=== PATIENT | male | born 1970 | race Caucasian/White ===

== ENCOUNTER 2019-12-17 13:09 | Emergency (ER) | payer MEDICAID | END 2019-12-17 13:47 | disposition left against medical advice (07) | LOC: ER 13:09 | DX: R05 Cough (principal); Z53.21 Procedure and treatment not carried out due to patient leaving prior to being seen by health care provider ==

== ENCOUNTER 2019-12-23 20:36 | Emergency (ER) | payer MEDICAID ==
[~2019-12-23] VITALS: Ht 170.2 cm; Wt 81.8 kg
[2019-12-23 20:45] VITALS: BP 190/97
--- NOTE | 2019-12-23 20:54 | PHYS DOC ---
General Adult EDM: Chief Complaint: DENTAL PROBLEM HPI: HPI: Patient is a 49 year old male who presents with complaint of right lower dental pain as well as productive cough. Patient states that the pain is been present for about the last 3 days. He states that he has been seen by dentist for the same tooth in the past and states that symptoms had cleared up but have returned. He states the cough is been going on for about a week and states the cough is productive of green sputum. He also indicates he has some purulent nasal drainage. He denies any chest pain or shortness breath. He also denies any fever.[] Review of Systems: Review of Systems: Constitutional: Denies fever or chills. [] Respiratory: Positive cough without shortness of breath. [] Cardiovascular: Denies chest pain or edema. [] Neurologic: Denies headache, focal weakness or sensory changes. [] Heart Score: Risk Factors: Risk Factors: DM, Current or recent (<one month) smoker, HTN, HLP, family history of CAD, obesity. Risk Scores: Score 0 - 3: 2.5% MACE over next 6 weeks - Discharge Home Score 4 - 6: 20.3% MACE over next 6 weeks - Admit for Clinical Observation Score 7 - 10: 72.7% MACE over next 6 weeks - Early Invasive Strategies Physical Exam: PE: Constitutional: Well developed, well nourished, no acute distress, non-toxic appearance. [] HENT: Normocephalic, atraumatic, dentition is poor with widespread dental caries. There is tenderness to palpation over the posterior aspect of the right lower first molar. [] Cardiovascular: Regular rate and rhythm[] Lungs & Thorax: Bilateral breath sounds clear to auscultation [] EKG: EKG: [] Radiology/Procedures: Radiology/Procedures: [] Course & Med Decision Making: Course & Med Decision Making Pertinent Labs and Imaging studies reviewed. (See chart for details) [] Prasanna Disclaimer: Prasanna Disclaimer: This electronic medical record was generated, in whole or in part, using a voice recognition dictation system. Departure Departure Impression: Primary Impression: Acute bronchitis Qualified Codes: J20.9 - Acute bronchitis, unspecified Additional Impression: Pain due to dental caries Disposition: HOME, SELF-CARE Condition: STABLE Referrals: NO PCP (PCP) Patient Instructions: Acute Bronchitis, Dental Caries, Dental Pain Scripts Hydrocodone/Apap 5-325 (NORCO 5-325 TABLET) 1 Each Tablet 1-2 EACH PO PRN Q6HRS PRN for PAIN, #15 as needed for pain Prov: VERNON FERNANDEZ Jr. DO 12/23/19 Amoxicillin/Potassium Clav (AUGMENTIN 875-125 TABLET) 1 Each Tablet 1 TAB PO BID for 10 Days, #20 TAB 0 Refills Prov: VERNON FERNANDEZ Jr. DO 12/23/19 VERNON FERNANDEZ Jr. DO Dec 23, 2019 20:53
[2019-12-23] MEDS ORDERED: HYDR-3164 PO (21:00)
[2019-12-23] MEDS ORDERED: AMOX1TAB61 PO (21:00)
== END 2019-12-23 21:07 | disposition home or self-care (01) ==
LOC: ER 20:36
DX: J20.9 Acute bronchitis, unspecified (principal); K02.9 Dental caries, unspecified
CPT/HCPCS: 99283

== ENCOUNTER 2020-10-27 09:48 | Emergency (ER) | payer MEDICAID ==
[~2020-10-27] VITALS: Ht 172.7 cm; Wt 81.8 kg
[~2020-10-27 09:48] MED LIST: AMOX1TAB61 PO; HYDR-3164 PO
--- NOTE | 2020-10-27 11:15 | PHYS DOC ---
Past Medical History Past Medical History: No Pertinent History Past Surgical History: No Surgical History Smoking Status: Current Every Day Smoker Alcohol Use: Occasionally General Adult EDM: Chief Complaint: COUGH HPI: HPI: Patient is a 49 year old male current smoker presenting today complaining of a dry cough for 1 month. Patient denies any fever, shortness of breath, chest pain. He states is from [place] and has been in town for a month. He states he had a negative rapid Covid test a month ago before he took a train to [place]. He states several family members in the house is living in and also cocaine. Review of Systems: Review of Systems: Constitutional: Denies fever or chills. [] Eyes: Denies change in visual acuity. [] HENT: Denies nasal congestion or sore throat. [] Respiratory: Reports cough, denies shortness of breath. [] Cardiovascular: Denies chest pain or edema. [] GI: Denies abdominal pain, nausea, vomiting, bloody stools or diarrhea. [] : Denies dysuria. [] Musculoskeletal: Denies back pain or joint pain. [] Integument: Denies rash. [] Neurologic: Denies headache, focal weakness or sensory changes. [] Psychiatric: Denies depression or anxiety. [] Heart Score: Risk Factors: Risk Factors: DM, Current or recent (<one month) smoker, HTN, HLP, family history of CAD, obesity. Risk Scores: Score 0 - 3: 2.5% MACE over next 6 weeks - Discharge Home Score 4 - 6: 20.3% MACE over next 6 weeks - Admit for Clinical Observation Score 7 - 10: 72.7% MACE over next 6 weeks - Early Invasive Strategies Allergies: Allergies: Allergies Coded Allergies Type Severity Reaction Last Updated Verified No Known Drug Allergies 12/23/19 No Physical Exam: PE: Constitutional: Well developed, well nourished, no acute distress, non-toxic appearance. [] HENT: Normocephalic, atraumatic, bilateral external ears normal, oropharynx moist, no oral exudates, nose normal. [] Eyes: PERRLA, EOMI, conjunctiva normal, no discharge. [] Neck: Normal range of motion, no tenderness, supple, no stridor. [] Cardiovascular:Heart rate regular rhythm, no murmur [] Lungs & Thorax: Bilateral breath sounds clear to auscultation [] Abdomen: Bowel sounds normal, soft, no tenderness, no masses, no pulsatile masses. [] Skin: Warm, dry, no erythema, no rash. [] Back: No tenderness, no CVA tenderness. [] Extremities: No tenderness, no cyanosis, no clubbing, ROM intact, no edema. [] Neurologic: Alert and oriented X 3, normal motor function, normal sensory fu nction, no focal deficits noted. [] Psychologic: Affect normal, judgement normal, mood normal. [] Current Patient Data: Vital Signs: Vital Signs Date Time Temp Pulse Resp B/P (MAP) Pulse Ox O2 Delivery O2 Flow Rate FiO2 10/27/20 10:10 98.4 67 20 133/79 (97) 97 Room Air 98.4 EKG: EKG: [] Radiology/Procedures: Radiology/Procedures: []PROCEDURE: PORTABLE CHEST 1V XR CHEST 1V History: Reason: cough,PUI / Spl. Instructions: / History: Comparison: None. Findings: No consolidation or pleural effusion. Normal heart size. No pneumothorax. Impression: 1. No acute cardiopulmonary process. Electronically signed by: Shabnam Espinosa DO (10/27/2020 11:38 AM) [id number] DICTATED and SIGNED BY: SHABNAM ESPINOSA DO DATE: 10/27/20 [id number] 0 Course & Med Decision Making: Course & Med Decision Making Pertinent Labs and Imaging studies reviewed. (See chart for details) This is a 49-year-old male patient presented to the ED today complaining of cough for 1 month. Current smoker, advised to consider smoking cessation. Chest x-ray interpreted by radiologist is negative. D/c to home. f/u with PCP in 1 week Prasanna Disclaimer: Prasanna Disclaimer: This electronic medical record was generated, in whole or in part, using a voice recognition dictation system. Departure Departure Impression: Primary Impression: Smoking addiction Additional Impressions: Acute bronchitis Qualified Codes: J20.9 - Acute bronchitis, unspecified Person under investigation for COVID-19 Disposition: 01 DC HOME SELF CARE/HOMELESS Condition: STABLE Referrals: NO PCP (PCP) follow up with your doctor in 1-2 weeks Patient Instructions: Acute Bronchitis, Smoking, You Can Quit, [id number] Additional Instructions: You were evaluated in the emergency room for a cough. Your chest x-ray is negative for any acute findings, consider smoking cessation. Use the prescribed medications as ordered. Follow-up with your own doctor in 1 to 2 weeks. Scripts Benzonatate (TESSALON PERLE) 100 Mg Capsule 1 CAP PO TID, #30 CAP Prov: SYLVIA HOPKINS APRN 10/27/20 Prednisone (PREDNISONE) 50 Mg Tablet 1 TAB PO DAILY, #5 TAB Prov: SYLVIA HOPKINS APRN 10/27/20 Albuterol Sulfate (Proair Hfa) 8.5 Gm Hfa.aer.ad 2 PUFF IH PRN Q4-6HRS PRN for wheezing for 21 Days, #1 INHALER 0 Refills Prov: SYLVIA HOPKINS APRN 10/27/20 SYLVIA HOPKINS APRN Oct 27, 2020 11:15
--- NOTE | 2020-10-27 11:40 | RAD ---
XR CHEST 1V History: Reason: cough,PUI / Spl. Instructions: / History: Comparison: None. Findings: No consolidation or pleural effusion. Normal heart size. No pneumothorax. Impression: 1. No acute cardiopulmonary process. Electronically signed by: Jae Dallas DO (10/27/2020 11:38 AM) [id number]
[2020-10-27 12:05] VITALS: BP 130/71
[2020-10-27] MEDS ORDERED: ALBU2.5V8 IH (12:05)
[2020-10-27] MEDS ORDERED: PRED50TA PO (12:05)
[2020-10-27] MEDS ORDERED: BENZ100C PO (12:05)
--- NOTE | 2020-10-29 09:03 | NUR ---
IP: Informed pt of negative COVID test. Pt verbalized understanding.
== END 2020-10-27 12:30 | disposition home or self-care (01) ==
LOC: ER 09:48
DX: J20.9 Acute bronchitis, unspecified (principal); Z20.822 Contact with and (suspected) exposure to COVID-19; R05 Cough; F17.200 Nicotine dependence, unspecified, uncomplicated
CPT/HCPCS: 71045; 99284; C9803; U0003